=== PATIENT | male | born 1960 | race Two or more races ===

== ENCOUNTER 2018-04-20 14:53 | Inpatient (IN) | payer MEDICARE, MEDICAID ==
[~2018-04-20] VITALS: Ht 162.6 cm; Wt 44.1 kg
[2018-04-20 14:55] VITALS: BP 93/63
[2018-04-20] MEDS ORDERED: UNOBMED (14:56)
[2018-04-20] MEDS ORDERED: QUETIAPINE FUMA50 MG ORAL (15:13)
[2018-04-20] MEDS ORDERED: ZETIA10 MG ORAL (15:13)
[2018-04-20] MEDS ORDERED: OXYCODONE HCL15 M1 ORAL (15:13)
[2018-04-20] MEDS ORDERED: PRILOSEC OTC20 MG ORAL (15:13)
[2018-04-20] MEDS ORDERED: VOLTAREN100 G1 TP (15:13)
[2018-04-20] MEDS ORDERED: TRUVADA 200 MG1 EAC1 ORAL (15:13)
[2018-04-20] MEDS ORDERED: ACETAMINOPHEN325 M1 ORAL (15:13)
[2018-04-20] MEDS ORDERED: CYMBALTA60 MG ORAL (15:13)
[2018-04-20] MEDS ORDERED: MULTIVITAMINS1 EAC2 ORAL (15:13)
[2018-04-20] MEDS ORDERED: LEXIVA700 MG ORAL (15:13)
[2018-04-20] MEDS ORDERED: PLAVIX75 MG ORAL (15:13)
--- NOTE | 2018-04-20 15:33 | Emergency Room Report ---
History of Present Illness General Chief Complaint: Generalized Weakness Source: Patient, Family Member, EMS Present Illness HPI This patient presents accompanied by his niece. He has a history of HIV. Over the past week he has had progressive weakness and generalized fatigue. The patient is DO NOT RESUSCITATE and comfort measures only. This reports that she just flew into [place] about a week ago from [place] where she lives. She states that she noted that over the past 4 months when she visited him previously, he has lost at least 80 pounds. The patient only desires to be comfortable. The niece is concerned because he is so weak and has had multiple falls. He does live alone. He has generalized body aches but denies localized pain. He denies recent illness. He denies fever or chills. He denies cough or congestion. He has no other complaints. EMS report that he was hypotensive during their evaluation. Also there was concern he had a syncopal episode. The patient adamantly declines any imaging to include CT head. He will agree to blood draws and IV fluids and antibiotics. Allergies: Coded Allergies: No Known Allergies (Unverified , 04/20/18) Patient History Past Medical History: see triage record, GERD, CVA/TIA, HIV Social History: Denies: smoking, alcohol use, drug use Reviewed Nursing Documentation: PMH: Agreed; PSxH: Agreed Nursing Documentation-PMH Past Medical History: No History, Except For Hx Cardiac Problems: No - HIV Hx Gastrointestinal Problems: Yes - gastritis Hx Neurological Problems: No - chronic pain Hx Cerebrovascular Accident: Yes Review of Systems All Other Systems: negative except mentioned in HPI Physical Exam Vital Signs Date Time Temp Pulse Resp B/P (MAP) Pulse Ox O2 Delivery O2 Flow Rate FiO2 04/20/18 14:53 97.0 87 18 90/52 99 Room Air Sp02 EP Interpretation: reviewed, normal General Appearance: no apparent distress, alert, GCS 15, non-toxic, cachetic Head: normocephalic, atraumatic Eyes: bilateral eye normal inspection, bilateral eye PERRL ENT: hearing grossly normal, normal pharynx, no angioedema, normal voice Neck: full range of motion, supple/symm/no masses Respiratory: chest non-tender, lungs clear, normal breath sounds, no respiratory distress, no retraction, no accessory muscle use, speaking full sentences Cardiovascular #1: regular rate, rhythm, no edema Gastrointestinal: normal bowel sounds, non tender, soft, non-distended, no guarding, no rebound Rectal: deferred Musculoskeletal: normal range of motion Neurologic: alert, oriented x3, responsive, speech normal Psychiatric: judgement/insight normal, memory normal, mood/affect normal, no suicidal/homicidal ideation Skin: warm/dry, well hydrated, other - See RN skin exam Medical Decision Making Diagnostic Impression: Primary Impression: Anemia Additional Impressions: Pneumonia COPD (chronic obstructive pulmonary disease) HIV disease ER Course This patient is profoundly anemic. He has also had 80 pound weight loss in the past 4 months, I am concerned that he could have an undiagnosed malignancy. He is also found to have pneumonia on chest x-ray and findings on chest x-ray consistent with COPD. He was given IV Rocephin and an albuterol/Atrovent breathing treatment. He was also started on blood transfusion here in the emergency department. I'm concerned about the rapid decline in this patient's prognosis is poor. He is admitted to the ICU step down unit. This patient is critically ill. This patient required complex medical decision- making, aggressive intervention, extensive laboratory workup and monitoring. Critical care time: 40 minutes. Please note that this Emergency Department Report was dictated using [employer] forester technology software, occasionally this can lead to erroneous entry secondary to interpretation by the dictation equipment. Laboratory Tests Test 04/20/18 15:10 04/20/18 16:30 White Blood Count 7.9 K/UL (4.8-10.8) Red Blood Count 2.40 M/UL (4.70-6.10) L Hemoglobin 6.7 G/DL (14.2-18.0) *L Hematocrit 21.3 % (42.0-52.0) L Mean Corpuscular Volume 89 FL (80-99) Mean Corpuscular Hemoglobin 27.7 PG (27.0-31.0) Mean Corpuscular Hemoglobin Concent 31.2 G/DL (32.0-36.0) L Red Cell Distribution Width 17.7 % (11.6-14.8) H Platelet Count 225 K/UL (150-450) Mean Platelet Volume 6.3 FL (6.5-10.1) L Neutrophils (%) (Auto) % (45.0-75.0) Lymphocytes (%) (Auto) % (20.0-45.0) Monocytes (%) (Auto) % (1.0-10.0) Eosinophils (%) (Auto) % (0.0-3.0) Basophils (%) (Auto) % (0.0-2.0) Differential Total Cells Counted 100 Neutrophils % (Manual) 70 % (45-75) Lymphocytes % (Manual) 25 % (20-45) Monocytes % (Manual) 4 % (1-10) Eosinophils % (Manual) 1 % (0-3) Basophils % (Manual) 0 % (0-2) Band Neutrophils 0 % (0-8) Platelet Estimate Adequate Platelet Morphology Normal Hypochromasia 3+ Anisocytosis 2+ Sodium Level 141 MMOL/L (136-145) Potassium Level 3.7 MMOL/L (3.5-5.1) Chloride Level 110 MMOL/L (98-107) H Carbon Dioxide Level 22 MMOL/L (21-32) Anion Gap 9 mmol/L (5-15) Blood Urea Nitrogen 17 mg/dL (7-18) Creatinine 1.3 MG/DL (0.55-1.30) Estimate Glomerular Filtration Rate 56.3 mL/min (>60) Glucose Level 82 MG/DL (74-106) Lactic Acid Level 1.80 mmol/L (0.4-2.0) Calcium Level 7.8 MG/DL (8.5-10.1) L Total Bilirubin 0.3 MG/DL (0.2-1.0) Aspartate Amino Transferase (AST) 21 U/L (15-37) Alanine Aminotransferase (ALT) 14 U/L (12-78) Alkaline Phosphatase 126 U/L (46-116) H Total Creatine Kinase 62 U/L (26-308) Creatine Kinase MB 0.7 NG/ML (0.0-3.6) Creatine Kinase MB Relative Index 1.1 Troponin I 0.012 ng/mL (0.000-0.056) Total Protein 6.4 G/DL (6.4-8.2) Albumin 1.2 G/DL (3.4-5.0) L Globulin 5.2 g/dL Albumin/Globulin Ratio 0.2 (1.0-2.7) L Urine Color Yellow Urine Appearance Clear Urine pH 6.5 (4.5-8.0) Urine Specific [place] 1.010 (1.005-1.035) Urine Protein 3+ (NEGATIVE) H Urine Glucose (UA) Negative (NEGATIVE) Urine Ketones Negative (NEGATIVE) Urine Blood 4+ (NEGATIVE) H Urine Nitrite Negative (NEGATIVE) Urine Bilirubin 1+ (NEGATIVE) H Urine Ictotest Negative (NEGATIVE) Urine Urobilinogen 1 MG/DL (0.0-1.0) H Urine Leukocyte Esterase 1+ (NEGATIVE) H Urine RBC 5-10 /HPF (0 - 0) H Urine WBC 2-4 /HPF (0 - 0) Urine Squamous Epithelial Cells None /LPF (NONE/OCC) Urine Bacteria Few /HPF (NONE) Microbiology Date/Time Source Procedure Growth Status 04/20/18 15:10 Nasal Nares Influenza Types A,B Antigen (MAURICIO) - Final Complete EKG Diagnostic Results Rate: normal Rhythm: NSR ST Segments: no acute changes Rhythm Strip Diag. Results EP Interpretation: yes Rate: 80's Rhythm: NSR, no PVC's, no ectopy Chest X-Ray Diagnostic Results Chest X-Ray Diagnostic Results : Chest X-Ray Ordered: Yes # of Views/Limited/Complete: 1 View Indication: Shortness of Breath EP Interpretation: No Interpretation: other - Opacity in LLL and upper lobes. See official report. Impression: Other - See above Electronically Signed by: Heidi Glynn DO Last Vital Signs Date Time Temp Pulse Resp B/P (MAP) Pulse Ox O2 Delivery O2 Flow Rate FiO2 04/20/18 14:53 97.0 87 18 90/52 99 Room Air Disposition: ADMITTED INPATIENT Condition: Critical Heidi Glynn DO Apr 20, 2018 15:33
[2018-04-20 15:34] LABS: HEMATOCRIT 21.3 % (42.0-52.0); MEAN CORPUSCULAR VOLUME 89 FL (80-99); PLATELET COUNT 225 K/UL (150-450); RED CELL DISTRIBUTION WIDTH 17.7 % (11.6-14.8); WHITE BLOOD COUNT 7.9 K/UL (4.8-10.8)
[2018-04-20 15:39] LABS: ANION GAP 9 mmol/L (5-15); BLOOD UREA NITROGEN 17 mg/dL (7-18); CALCIUM 7.8 MG/DL (8.5-10.1); CARBON DIOXIDE 22 MMOL/L (21-32); CHLORIDE 110 MMOL/L (98-107); CREATININE 1.3 MG/DL (0.55-1.30); POTASSIUM 3.7 MMOL/L (3.5-5.1); SODIUM 141 MMOL/L (136-145)
[2018-04-20 15:43] LABS: HEMOGLOBIN 6.7 G/DL (14.2-18.0)
[2018-04-20 15:53] LABS: ALANINE AMINOTRANSFERASE 14 U/L (12-78); ALBUMIN 1.2 G/DL (3.4-5.0); ALBUMIN/GLOBULIN RATIO 0.2 (1.0-2.7); ALKALINE PHOSPHATASE 126 U/L (46-116); ASPARTATE AMINO TRANSFERASE 21 U/L (15-37); BILIRUBIN,TOTAL 0.3 MG/DL (0.2-1.0); CKMB 0.7 NG/ML (0.0-3.6); CREATINE KINASE 62 U/L (26-308)
--- NOTE | 2018-04-20 15:57 | Diagnostic Imaging Report ---
Indication: Dyspnea Comparison: None A single view chest radiograph was obtained. Findings: There are patchy infiltrates within the left lung base and the small foci in the upper lobes. Pneumonia suspected especially at the left lung base. Heart size is normal. Aorta is calcified. Bones are osteopenic. The lungs are also hyperexpanded consistent with COPD. IMPRESSION: Suspected pneumonia bilaterally. COPD
[2018-04-20 16:17] VITALS: BP 113/71
[2018-04-20 16:52] LABS: APPEARANCE,URINE CLEAR; BILIRUBIN, URINE 1+ (NEGATIVE); GLUCOSE, URINE (UA) NEGATIVE (NEGATIVE); KETONES,URINE NEGATIVE (NEGATIVE); LEUKOCYTE ESTERASE ,URINE 1+ (NEGATIVE); NITRITE,URINE NEGATIVE (NEGATIVE); PH,URINE 6.5 (4.5-8.0); PROTEIN,URINE 3+ (NEGATIVE); UROBILINOGEN,URINE 1 MG/DL (0.0-1.0)
[2018-04-20 16:54] LABS: COLOR,URINE YELLOW
[2018-04-20] MEDS ORDERED: Albuterol ud Inhalation HHN ONE (17:45)
[2018-04-20] MEDS ORDERED: Ipratropium 0.02% Inh Soln 2.5ml UD HHN ONE (17:45)
[2018-04-20] MEDS ORDERED: cefTRIAXone 1 GM in NS 55 ML IVPB ONE (17:45)
[2018-04-20 18:33] VITALS: BP 124/76
[2018-04-20] MEDS ORDERED: oxyCODONE 15mg IR tab ORAL PRN (23:00)
[2018-04-21] VITALS: BP 128/78
[2018-04-21 04:00] VITALS: BP 138/85
--- NOTE | 2018-04-21 06:58 | Consultation ---
History of Present Illness General Date patient seen: Apr 21, 2018 Time patient seen: 06:52 Chief Complaint: Generalized Weakness Present Illness Allergies: Coded Allergies: No Known Allergies (Unverified , 04/20/18) Medication History Scheduled Clopidogrel Bisulfate* (Plavix*), 75 MG ORAL DAILY, (Reported) Diclofenac Sodium (Voltaren), 100 GM TP DAILY, (Reported) Duloxetine Hcl* (Cymbalta*), 60 MG ORAL BID, (Reported) Emtricitabine/Tenofovir 200-300MG* (Truvada 200-300MG*), 1 TAB ORAL DAILY, ( Reported) Ezetimibe (Zetia*), 10 MG ORAL BEDTIME, (Reported) Fosamprenavir Calcium* (Lexiva*), 1,400 MG ORAL BID, (Reported) Multivitamins* (Multivitamins*), 1 TAB ORAL DAILY, (Reported) Omeprazole Magnesium (Prilosec Otc), 20 MG ORAL DAILY, (Reported) Quetiapine Fumarate* (Quetiapine Fumarate*), 100 MG ORAL DAILY, (Reported) Scheduled PRN Acetaminophen* (Acetaminophen 325MG Tablet*), Unknown Dose ORAL Q4H PRN for For Pain, (Reported) Oxycodone Hcl* (Oxycodone Hcl*), 15 MG ORAL Q8H PRN for For Pain, (Reported) Miscellaneous Medications Unable to Obtain Medications (Unable To Obtain Meds), (Reported) Patient History Healthcare decision maker Resuscitation status Full Code Advanced Directive on File Physical Exam Last 24 Hour Vital Signs Date Time Temp Pulse Resp B/P (MAP) Pulse Ox O2 Delivery O2 Flow Rate FiO2 04/21/18 04:00 87 04/21/18 04:00 Room Air 04/21/18 04:00 98.1 90 18 138/85 (102) 99 04/21/18 00:00 98.4 93 18 128/78 (95) 99 04/21/18 00:00 96 04/21/18 00:00 Room Air 04/20/18 20:00 81 04/20/18 20:00 Room Air 04/20/18 19:59 Room Air 04/20/18 19:44 97.0 81 9 124/76 100 Room Air 21 04/20/18 18:33 81 9 124/76 100 Room Air 04/20/18 18:06 73 18 100 Room Air 21 04/20/18 17:59 75 18 Room Air 21 04/20/18 17:57 75 18 100 Room Air 21 04/20/18 16:17 70 9 113/71 100 Room Air 04/20/18 14:55 87 18 Room Air 04/20/18 14:55 97.0 74 11 93/63 100 Room Air 04/20/18 14:53 97.0 87 18 90/52 99 Room Air Intake and Output 04/20/18 04/21/18 19:00 07:00 Intake Total 1000 ml Output Total 100 ml Balance 1000 ml -100 ml Intake IV Total 1000 ml Output Urine Total 100 ml Laboratory Tests Test 04/20/18 15:10 04/20/18 16:30 White Blood Count 7.9 K/UL (4.8-10.8) Red Blood Count 2.40 M/UL (4.70-6.10) L Hemoglobin 6.7 G/DL (14.2-18.0) *L Hematocrit 21.3 % (42.0-52.0) L Mean Corpuscular Volume 89 FL (80-99) Mean Corpuscular Hemoglobin 27.7 PG (27.0-31.0) Mean Corpuscular Hemoglobin Concent 31.2 G/DL (32.0-36.0) L Red Cell Distribution Width 17.7 % (11.6-14.8) H Platelet Count 225 K/UL (150-450) Mean Platelet Volume 6.3 FL (6.5-10.1) L Neutrophils (%) (Auto) % (45.0-75.0) Lymphocytes (%) (Auto) % (20.0-45.0) Monocytes (%) (Auto) % (1.0-10.0) Eosinophils (%) (Auto) % (0.0-3.0) Basophils (%) (Auto) % (0.0-2.0) Differential Total Cells Counted 100 Neutrophils % (Manual) 70 % (45-75) Lymphocytes % (Manual) 25 % (20-45) Monocytes % (Manual) 4 % (1-10) Eosinophils % (Manual) 1 % (0-3) Basophils % (Manual) 0 % (0-2) Band Neutrophils 0 % (0-8) Platelet Estimate Adequate Platelet Morphology Normal Hypochromasia 3+ Anisocytosis 2+ Sodium Level 141 MMOL/L (136-145) Potassium Level 3.7 MMOL/L (3.5-5.1) Chloride Level 110 MMOL/L (98-107) H Carbon Dioxide Level 22 MMOL/L (21-32) Anion Gap 9 mmol/L (5-15) Blood Urea Nitrogen 17 mg/dL (7-18) Creatinine 1.3 MG/DL (0.55-1.30) Estimat Glomerular Filtration Rate 56.3 mL/min (>60) Glucose Level 82 MG/DL (74-106) Lactic Acid Level 1.80 mmol/L (0.4-2.0) Calcium Level 7.8 MG/DL (8.5-10.1) L Total Bilirubin 0.3 MG/DL (0.2-1.0) Aspartate Amino Transf (AST/SGOT) 21 U/L (15-37) Alanine Aminotransferase (ALT/SGPT) 14 U/L (12-78) Alkaline Phosphatase 126 U/L (46-116) H Total Creatine Kinase 62 U/L (26-308) Creatine Kinase MB 0.7 NG/ML (0.0-3.6) Creatine Kinase MB Relative Index 1.1 Troponin I 0.012 ng/mL (0.000-0.056) Total Protein 6.4 G/DL (6.4-8.2) Albumin 1.2 G/DL (3.4-5.0) L Globulin 5.2 g/dL Albumin/Globulin Ratio 0.2 (1.0-2.7) L Urine Color Yellow Urine Appearance Clear Urine pH 6.5 (4.5-8.0) Urine Specific [place] 1.010 (1.005-1.035) Urine Protein 3+ (NEGATIVE) H Urine Glucose (UA) Negative (NEGATIVE) Urine Ketones Negative (NEGATIVE) Urine Blood 4+ (NEGATIVE) H Urine Nitrite Negative (NEGATIVE) Urine Bilirubin 1+ (NEGATIVE) H Urine Ictotest Negative (NEGATIVE) Urine Urobilinogen 1 MG/DL (0.0-1.0) H Urine Leukocyte Esterase 1+ (NEGATIVE) H Urine RBC 5-10 /HPF (0 - 0) H Urine WBC 2-4 /HPF (0 - 0) Urine Squamous Epithelial Cells None /LPF (NONE/OCC) Urine Bacteria Few /HPF (NONE) Microbiology Date/Time Source Procedure Growth Status 04/20/18 15:10 Nasal Nares Influenza Types A,B Antigen (MAURICIO) - Final Complete Height (Feet): 5 Height (Inches): 4.00 Weight (Pounds): 97 Medications Current Medications Medications (Trade) Dose Ordered Sig/Mari Route PRN Reason Start Time Stop Time Status Last Admin Dose Admin Acetaminophen (Tylenol) 325 mg Q4H PRN ORAL For Pain 04/20/18 23:00 05/20/18 22:59 Duloxetine HCl (Cymbalta) 60 mg BID ORAL 04/21/18 09:00 05/21/18 08:59 Emtricitabine/ Tenofovir (Truvada 200/ 300mg) 1 tab DAILY ORAL 04/21/18 09:00 05/21/18 08:59 UNV EZETIMIBE (Zetia) 10 mg BEDTIME ORAL 04/21/18 21:00 05/21/18 20:59 Multivitamins (Multivitamins) 1 tab DAILY ORAL 04/21/18 09:00 05/21/18 08:59 Oxycodone HCl (Roxicodone) 15 mg Q8H PRN ORAL For Pain 04/20/18 23:00 04/27/18 22:59 UNV Quetiapine Fumarate (SEROquel) 100 mg DAILY ORAL 04/21/18 09:00 05/21/18 08:59 Assessment/Plan Assessment/Plan Hematology Consult REQ MD: Sabino Tobias RFC: Anemia eval, ftt DOS: 04/21/18 ID: 58y old male, accompanied by his niece. He has a history of HIV. Over the past week he has had progressive weakness and generalized fatigue. The patient is DO NOT RESUSCITATE and comfort measures only. This reports that she just flew into [place] about a week ago from [place] where she lives. She states that she noted that over the past 4 months when she visited him previously, he has lost at least 80 pounds. The patient only desires to be comfortable. The niece is concerned because he is so weak and has had multiple falls. He does live alone. He has generalized body aches but denies localized pain. He denies recent illness. He denies fever or chills. He denies cough or congestion. He has no other complaints. EMS report that he was hypotensive during their evaluation. Also there was concern he had a syncopal episode. The patient adamantly declines any imaging to include CT head. He will agree to blood draws and IV fluids and antibiotics. Heme was consulted to eval for malignancy. Allergies: Coded Allergies: No Known Allergies (Unverified , 04/20/18) Patient History Past Medical History: see triage record, GERD, CVA/TIA, HIV Social History: Denies: smoking, alcohol use, drug use Reviewed Nursing Documentation: PMH: Agreed; PSxH: Agreed Nursing Documentation-PMH Past Medical History: No History, Except For Hx Cardiac Problems: No - HIV Hx Gastrointestinal Problems: Yes - gastritis Hx Neurological Problems: No - chronic pain Hx Cerebrovascular Accident: Yes ER ROS - General Review of Systems All Other Systems: negative except mentioned in HPI ER Physical Exam - General Physical Exam Vital Signs in emr Sp02 EP Interpretation: reviewed, normal General Appearance: no apparent distress, alert Head: normocephalic, atraumatic Eyes: bilateral eye normal inspection, bilateral eye PERRL ENT: hearing grossly normal, normal pharynx Neck: full range of motion, supple/symm/no masses Respiratory: chest non-tender, lungs clear, normal breath sounds, no respiratory distress, no retraction Cardiovascular: regular rate, rhythm, no edema Gastrointestinal: normal bowel sounds, non tender, soft Rectal: deferred Musculoskeletal: normal range of motion Neurologic: alert, oriented x3, responsive, speech normal Psychiatric: judgement/insight normal, memory normal Skin: warm/dry, well hydrated, other - See RN skin exam Labs: in emr Readiology: noted Assessment and Recs: # Failure to thrive -- 80lb weight loss, have again recommended that the patient undergo imaging, and have ordered for CT C/A/P but up to patient, at this time has been refusing --> will certified lactation counselor patient to have this done --> also Id recs regarding status of HIV, could have been noncompliant with meds --> imaging re-ordered --> if occult + consider gi eval # Anemia due to chronic disease --> hgb goal >7 --> no hemolysis is noted --> p smear to be reviewed --> anemia panel ordered # Pneumonia on abx as per ID # COPD (chronic obstructive pulmonary disease) --> given albuterol and atrovent prn --> does not appears to be in exacerbation # HIV disease --> as per ID recs Greatly appreciate consultation! Sterling Gutiérrez MD Apr 21, 2018 06:58
[2018-04-21] MEDS ORDERED: Isovue-300 100ml vial INJ PRN ×2 (07:00)
[2018-04-21 08:00] VITALS: BP 146/78
[2018-04-21] MEDS ORDERED: DULoxetine 30mg cap ORAL SCH (09:00)
[2018-04-21 09:08] LABS: ANION GAP 9 mmol/L (5-15); BLOOD UREA NITROGEN 15 mg/dL (7-18); CALCIUM 8.3 MG/DL (8.5-10.1); CARBON DIOXIDE 23 MMOL/L (21-32); CHLORIDE 110 MMOL/L (98-107); CREATININE 1.3 MG/DL (0.55-1.30); POTASSIUM 3.5 MMOL/L (3.5-5.1); SODIUM 142 MMOL/L (136-145)
[2018-04-21 09:18] LABS: HEMATOCRIT 35.1 % (42.0-52.0); HEMOGLOBIN 11.6 G/DL (14.2-18.0); MEAN CORPUSCULAR VOLUME 87 FL (80-99); PLATELET COUNT 203 K/UL (150-450); RED BLOOD COUNT 4.05 M/UL (4.70-6.10); RED CELL DISTRIBUTION WIDTH 15.8 % (11.6-14.8); WHITE BLOOD COUNT 11.9 K/UL (4.8-10.8)
[2018-04-21 09:34] LABS: FERRITIN 42 NG/ML (8-388)
[2018-04-21 09:51] LABS: % IRON SATURATION 36 % (15-50); IRON 43 ug/dL (50-175); TOTAL IRON BINDING CAPACITY 118 ug/dL (250-450)
[2018-04-21] MEDS ORDERED: Miralax 17gm pkt ORAL PRN (10:30)
[2018-04-21] MEDS ORDERED: Bisacodyl EC 5mg tab ORAL PRN (10:30)
[2018-04-21 12:00] VITALS: BP 140/90
--- NOTE | 2018-04-21 14:59 | Diagnostic Imaging Report ---
CLINICAL INDICATION:Weight loss, pneumonia, gastritis, progressive weakness and fatigue TECHNIQUE: Patient ingested oral contrast IV administration nonionic contrast. Multiphasic spiral acquisitions obtained through the chest, abdomen, and pelvis. Multiplanar reconstructions were generated. Total dose length product 824.48 mGycm. CTDIvol(s) 8.37,9.14 mGy. Radiation dose was minimized using automated exposure control COMPARISON: none FINDINGS Chest: The lungs are somewhat hyperinflated. There is a calcified granuloma in the right lower lobe. Small patchy irregular opacities are seen scattered throughout both lungs. There is a peripheral one of these, image 21 series 6, which demonstrates what may be a central cavitation, although suspect that this is just material surrounding bronchiectatic bronchus. The largest of the patchy irregular opacity is seen in the left upper lobe, measuring 19 x 10 mm. Small peripheral bullae are demonstrated bilaterally. In the left lower lobe and inferior left upper lobe, there is more extensive and diffuse reticular interstitial opacity with some airspace elements as well. Within this are areas of patchy and nodular opacity. There is trace pleural fluid on the left. Compressive atelectatic changes are seen in the posterior lower lobes bilaterally. The heart size is normal. There is a prominent aortopulmonary window node, measuring up to 19 mm in diameter. The included portions of the thyroid demonstrate asymmetry, right lobe larger than left lobe. There is also questionably one or more subcentimeter nodules within the right thyroid lobe. There is generalized edema of the subcutaneous and mediastinal fat. Abdomen pelvis: There is diffuse edema of the subcutaneous and abdominal fat. There is also trace free intraperitoneal fluid. The appendix is upper limits of normal in caliber, measuring 7 mm in diameter. Presence of diffuse edema makes it impossible to assess for periappendiceal inflammatory changes. No small bowel distention or small bowel wall thickening. Contrast is seen throughout the entirety of the small bowel and well into the colon. The stomach and duodenum are unremarkable. There is no evidence of diverticulosis or diverticulitis. The gallbladder is distended. No evidence of calculi or secondary signs of acute cholecystitis. The liver is unremarkable except for periportal edema. Unremarkable bile ducts. The pancreas, spleen, adrenals, kidneys are unremarkable. No retroperitoneal or mesenteric mass or adenopathy. No pelvic mass or adenopathy. Note, however, obscuration of significant portions of the pelvis by streak artifact from a left hip prosthesis. The visualized portion of the bladder are grossly unremarkable. There are bilateral common and external iliac arterial stents. The bones demonstrate degenerative spondylosis changes. IMPRESSION: Patchy irregular opacities scattered throughout both lungs. Most likely represents focal areas of inflammation/infiltrate. There is questionable cavitation of a single lesion in the right upper lobe, which means tuberculosis should be included in the differential. Mass lesion as etiology of any of these is also possible. This was discussed by phone with Dr. Gutiérrez at the time of interpretation More extensive reticular interstitial opacities throughout much of the left lower lobe and inferior left upper lobe. These are nonspecific, could represent areas of acute inflammation or edema, versus chronic fibrotic changes. Evidence old granulomatous disease within the right lung COPD changes Trace left pleural fluid Other manifestations of anasarca, including trace ascites, diffuse edema of the subcutaneous, mediastinal, and abdominal and pelvic fat Asymmetric right thyroid lobe. One or more subcentimeter nodules within the right thyroid lobe. No further follow-up necessary No acute abdominal process other than the pleural fluid and edema no evidence of acute inflammation or bowel obstruction Somewhat limited evaluation of the pelvis, due to streak artifact from left hip prosthesis Bilateral common and external iliac arterial stents Incidental finding of degenerative spondylosis The CT scanner at [facility] is accredited by the [employer] and the scans are performed using protocols designed to limit radiation exposure to as low as reasonably achievable to attain images of sufficient resolution adequate for diagnostic evaluation.
[2018-04-21] MEDS ORDERED: Docusate 100mg cap ORAL SCH (21:00)
--- NOTE | 2018-04-22 02:45 | History and Physical Report ---
DATE OF ADMISSION: 04/20/2018 HISTORY OF PRESENT ILLNESS: The patient originally is admitted for severe anemia with hemoglobin 6.7. The patient has history of human immunodeficiency virus. The patient was too lethargic and too confused and too demented to get any history from the patient. So, I got the most of the history from the niece that was at the bedside. She said that she came from [place] to take care of him. According to her, he had lost 80 pounds recently in the last 4 months. The patient has dementia, most likely related to the human immunodeficiency virus and also came with severe anemia. The patient has also complaints of multiple falls as well as constipation. She has history of alcohol abuse. The patient has also stated that it is very difficult for him to walk. He has lower extremity weakness. Denies shortness of breath. Denies cough. Denies any significant pain. PAST MEDICAL HISTORY: Significant for human immunodeficiency virus, weight loss, and dementia. SURGICAL HISTORY: Hip replacement. SOCIAL HISTORY: History of smoking. History of alcohol abuse. REVIEW OF SYSTEMS: HEENT: Denies headaches. RESPIRATORY: Denies shortness of breath. Denies cough. CARDIOVASCULAR: Denies chest pain. Denies orthopnea. GASTROINTESTINAL: Denies nausea, vomiting, or diarrhea. EXTREMITY: Complains of pain all over. CENTRAL NERVOUS SYSTEM: Denies headache. Denies change in vision or speech pattern. However, the patient is very altered. PHYSICAL EXAMINATION: VITAL SIGNS: Temperature 97.2, pulse 78, and blood pressure 110/70. HEENT: PERRLA. NECK: Supple. CHEST: Clear to auscultation CARDIOVASCULAR: Regular rate and rhythm. ABDOMEN: Soft. Positive bowel sounds. Nontender. EXTREMITIES: No edema. NEUROLOGIC: The patient is . Oriented to name. Reflexes in both sides. LABORATORY TESTING: Hemoglobin 6.7. ASSESSMENT AND PLAN: Severe anemia, weight loss, dementia, and human immunodeficiency virus. I have asked Dr. Curtis, Dr. Gutiérrez, and Dr. Lopez to see the patient for the anemia workup and treatment status post dehydration. I also do not believe that the patient is safe to go home due to multiple issues, mainly dementia, fall, lower extremity weakness, and weight loss. The patient, I believe, that is not safe to go home and he is not capable taking care of himself. However, the patient insisted of going home and wants to sign AMA. We will also get a clinical social work therapist and case management consultation for this issue. I spoke with the niece and she agreed with me that the patient is not safe and needs to be in a facility, so she was in agreement with me at the bedside. Sabino Tobias M.D. DR: STEPH JOB#: [id number] CC:
--- NOTE | 2018-04-22 05:45 | Consultation ---
DATE OF CONSULTATION: 04/21/2018 GASTROENTEROLOGY CONSULTATION CHIEF COMPLAINT: I was asked to see this patient by Dr. Sabino Tobias for evaluation of failure to thrive. HISTORY OF PRESENT ILLNESS: The patient is a 58-year-old white man with HIV, who comes into the hospital due to poor appetite and failure to thrive. The patient has with low energy. He has lost about 60 pounds over the past few months. He originally had an endoscopy and colonoscopy in the summer of 2017 at [facility], but he is not aware of the results. He was told that a polyp was found and removed and he was asked to use antibiotics . His bowel movements are daily. They are occasionally loose. He has had no vomiting. He does feel depressed and has difficulty sleeping. PAST MEDICAL HISTORY: History of HIV positivity. The patient reportedly has low viral counts and high CD4 of perhaps 500, history of depression, and anemia on admission to this hospital. FAMILY HISTORY: Noncontributory. SOCIAL HISTORY: The patient is single. He is [place]. He does smoke. He does not drink alcohol. MEDICATIONS: See the chart list for details. REVIEW OF SYSTEMS: Otherwise negative. PHYSICAL EXAMINATION: GENERAL: A thin white man, seen in his room with his niece at bedside. HEENT: Normocephalic and atraumatic. Sclerae anicteric. Oropharynx clear. NECK: Supple. CHEST: Clear to auscultation. CARDIOVASCULAR: Revealed a regular rate. ABDOMEN: Soft. EXTREMITIES: Revealed no edema. LABORATORY DATA: Noted. ASSESSMENT: This patient presents with failure to thrive and malnutrition and anorexia. He does have HIV and therefore from his acquired immune deficiency syndrome. This will have to be further investigated by Infectious Disease team. He also has depression and perhaps he has a psychiatric component. He does have profound degree of anemia and Hematology consultation has been noted. The patient's stool should be checked for occult blood and perhaps a bone marrow will be initiated. I will also review the records from [facility] to evaluate the quality and findings of the previous endoscopy. RECOMMENDATIONS: Per above discussion and per orders written in the chart. Thank you for asking me to participate in the care of this patient. Amrita Curtis M.D. DR: CRYSTAL JOB#: [id number] CC:
--- NOTE | 2018-04-22 10:28 | Discharge Summary ---
Discharge Summary Discharge Summary _ DATE OF ADMISSION: 04/20/2018 DATE OF DISCHARGE: 04/21/2018 CONSULTANTS: Dr. Amrita Gutiérrez BRIEF HOSPITAL COURSE: Patient is a 58-year-old male, patient was originally admitted for severe anemia with hemoglobin of 6.7. He has history of HIV. The patient was too lethargic and confused unable to give history. History was obtained from the niece who was present at the bedside. According to the niece patient had lost almost 80 pounds recently, in the last 4 months. The patient has dementia, most likely related to HIV. There was also complains of multiple falls as well as constipation. He has history of alcohol abuse. Patient has difficulty walking and has lower extremity weakness. There was no shortness of breath. No cough. No significant pain. On evaluation at ED, blood pressure was 90/52, heart rate 87. Per EMS report patient was also hypotensive. Blood work showed severe anemia. Hemoglobin level was 6.7, hematocrit 21. Troponin was slightly elevated. Urinalysis showed 1+ leukocyte esterase, 5-10 RBC, 2-4 WBC, 3+ protein, negative glucose. EKG done showed normal sinus rhythm at a rate of 80s with no PVC, no ectopy. Chest x-ray showed an opacity in the left lung lobe and upper lobe. He declined CT scan of the head. He was given breathing treatment. He was started on blood transfusion. He was admitted for evaluation of anemia, pneumonia, COPD, and HIV. Pathologist and GI were consulted. Patient had failure to thrive with significant weight loss. Stool OB was ordered. He was initially refusing diagnostic imaging. A CT of the abdomen, chest and pelvis showed patchy irregular opacities scattered throughout both lungs; extensive reticular interstitial opacity on the left lower and inferior left upper lobe; old granulomatous disease in the right lung; COPD changes; trace ascites with diffuse edema of the subcutaneous, mediastinal and abdominal and pelvic fat; asymmetric right thyroid lobe with nodule. There was no acute abdominal process other than pleural fluid and edema. No evidence of acute inflammation or bowel obstruction. There was bilateral, and external iliac arterial stents. He received 2 unit packed RBC blood transfusion. Full treatment was not carried out as patient left against medical advise. He was seen by social worker psychiatric prior to leaving. FINAL DIAGNOSES: Severe anemia requiring blood transfusion Failure to thrive/weight loss HIV Dementia Pneumonia COPD Anemia due to chronic disease DISPOSITION: Patient left against medical advise. I have been assigned to dictate discharge summary on this account, and I was not involved in the patient's management. Sue Mcfarlane NP Apr 22, 2018 10:28
--- NOTE | 2018-04-22 15:01 | Cardiology Report ---
APPROVED REPORT EKG Measurement Heart [id number] 136P [id number] Normal sinus rhythm Left axis deviation Anterior infarct, age undetermined Abnormal ECG
== END 2018-04-21 15:10 | disposition left against medical advice (07) | DRG 811 ==
LOC: EDBD 14:53 → EDBEDREQ 16:11 → EMR 17:06 → 2W 17:11 → EDBEDREQ 17:29
PROC: 30233N1 Transfusion of Nonautologous Red Blood Cells into Peripheral Vein, Percutaneous Approach (ICD-10-PCS; principal; 2018-04-20)
DX: D64.89 Other specified anemias (principal); J18.9 Pneumonia, unspecified organism; B20 Human immunodeficiency virus [HIV] disease; Z68.1 Body mass index [BMI] 19.9 or less, adult; F02.80 Dementia in other diseases classified elsewhere, unspecified severity, without behavioral disturbance, psychotic disturbance, mood disturbance, and anxiety; R62.7 Adult failure to thrive; R63.4 Abnormal weight loss; J44.9 Chronic obstructive pulmonary disease, unspecified; Z66 Do not resuscitate; F17.200 Nicotine dependence, unspecified, uncomplicated; Z91.81 History of falling; Z60.2 Problems related to living alone
CPT/HCPCS: 36415; 71045; 71260; 74177; 80048; 80053; 81003; 82105; 82378; 82550; 82553; 82607; 82728; 82746; 83010; 83540; 83550; 83605; 83615; 84443; 84484; 84550; 85007; 85025; 85044; 85060; 85384; 85660; 86710; 86850; 86900; 86901; 86920; 87040; 93005; 94640; 94664; 96361; 96365; 99291